=== PATIENT | female | born 1935 | race Asian ===

== ENCOUNTER 2019-08-21 12:35 | Emergency (ER) | payer MEDICARE, MEDICAID ==
[~2019-08-21] VITALS: Ht 157.5 cm; Wt 54.4 kg
--- NOTE | 2019-08-21 12:35 | NUR ---
ED Nurse Note: PT brought in by ambulance from [facility]. per EMS report, pt was seen stubling and bystander caught her and called 911. no actual fall or injury per report.
[2019-08-21 12:38] VITALS: BP 130/70
--- NOTE | 2019-08-21 12:59 | NUR ---
ED Nurse Note: ED MD @ bedside
--- NOTE | 2019-08-21 13:20 | NUR ---
ED Nurse Note: pt in CT
--- NOTE | 2019-08-21 13:35 | NUR ---
ED Nurse Note: pt back from radiology
--- NOTE | 2019-08-21 13:40 | Diagnostic Imaging Report ---
EXAM: XR Chest, 1 View CLINICAL HISTORY: DIZZY TECHNIQUE: Frontal view of the chest. COMPARISON: No relevant prior studies available. FINDINGS: Lungs: Hypoventilatory lungs. Bibasilar atelectasis. Mild central vascular congestion. 3.4 mm nodule in the left midlung. Pleural space: Unremarkable. No pneumothorax. Heart: Mild cardiomegaly. Mediastinum: Unremarkable. Bones/joints: Unremarkable. Vasculature: Aortic knob calcification. IMPRESSION: 1. Hypoventilatory lungs. Bibasilar atelectasis. Mild central vascular congestion. 2. 3.4 mm nodule in the left midlung.
--- NOTE | 2019-08-21 13:42 | NUR ---
ED Nurse Note: Pt aware of need for urine specimen, says she will call when she needs to go to the bathroom
--- NOTE | 2019-08-21 13:45 | NUR ---
ED Nurse Note: EKG shows acute MO. ED MD aware. Pt to be transferred to [facility]. Charge nurse aware and corresponding with [facility].
--- NOTE | 2019-08-21 13:50 | Emergency Room Report ---
History of Present Illness General Chief Complaint: Generalized Weakness Source: Patient, EMS Present Illness HPI Patient is an 84-year-old female who presents after increased weakness and dizziness starting this morning. Had prior history of high blood pressure. Patient was noted to have near syncopal episode and was brought to the hospital after bystanders called 911. Patient is Yakut speaking. No known prior cardiac history. Reports having some weakness to her right upper extremity. Denies any vomiting. Denies any chest discomfort. Allergies: Coded Allergies: No Known Allergies (Unverified , 08/21/19) COVID-19 Screening Contact w/high risk pt: No Recent Travel to affected area: No Experienced COVID-19 symptoms?: No COVID-19 Testing performed GAME ARTIST: No Patient History Past Medical History: see triage record Reviewed Nursing Documentation: PMH: Agreed; PSxH: Agreed Nursing Documentation-PMH Past Medical History: No Stated History Review of Systems All Other Systems: negative except mentioned in HPI Physical Exam Vital Signs Date Time Temp Pulse Resp B/P (MAP) Pulse Ox O2 Delivery O2 Flow Rate FiO2 08/21/19 12:29 98.2 96 18 135/67 (89) 95 Room Air Sp02 EP Interpretation: reviewed, normal General Appearance: normal inspection, well appearing, no apparent distress, alert, GCS 15 Head: atraumatic ENT: normal ENT inspection, hearing grossly normal, normal voice Neck: normal inspection, full range of motion, supple, no bony tend Respiratory: normal inspection, lungs clear, normal breath sounds, no respiratory distress, no retraction, no wheezing Cardiovascular #1: regular rate, rhythm, no edema Gastrointestinal: normal inspection, normal bowel sounds, non tender, soft, no guarding, no hernia Genitourinary: no CVA tenderness Musculoskeletal: normal inspection, back normal, normal range of motion Neurologic: alert, motor strength/tone normal, kindergarten tutor III-XII nml as tested, responsive, speech normal, normal inspection Psychiatric: normal inspection, judgement/insight normal, mood/affect normal Medical Decision Making Diagnostic Impression: Primary Impression: STEMI (ST elevation myocardial infarction) Additional Impression: Right sided weakness ER Course Patient presented for increased dizziness. Differential diagnosis include was not limited to CVA, myocardial infarction, electrolyte abnormality, coronavirus infection among others. Because of complexity of patient's case laboratory tests and imaging studies were ordered. Patient was noted to have acute onset of dizziness with some associated subjective weakness to the right upper extremity. EKG interpreted by me showed normal sinus rhythm with rate of [address] elevation as well as some inferior ST depression phasic T waves are noted in the lateral leads. Patient was given aspirin. CT imaging of the head was ordered. Chest x-ray showed Aortic calcification without any definite infiltrate mild cardiomegaly hypoventilatory lungs bibasilar atelectasis 3.4 mm nodule in the left midlung. Patient was discussed with accepting physician at [facility] for transfer for higher level of care due to possible STEMI. Labs Test 08/21/19 13:10 White Blood Count 8.3 K/UL (4.8-10.8) Red Blood Count 4.53 M/UL (4.20-5.40) Hemoglobin 13.6 G/DL (12.0-16.0) Hematocrit 42.6 % (37.0-47.0) Mean Corpuscular Volume 94 FL (80-99) Mean Corpuscular Hemoglobin 30.0 PG (27.0-31.0) Mean Corpuscular Hemoglobin Concent 31.9 G/DL (32.0-36.0) Red Cell Distribution Width 12.5 % (11.6-14.8) Platelet Count 332 K/UL (150-450) Mean Platelet Volume 6.4 FL (6.5-10.1) Neutrophils (%) (Auto) 65.5 % (45.0-75.0) Lymphocytes (%) (Auto) 25.2 % (20.0-45.0) Monocytes (%) (Auto) 5.5 % (1.0-10.0) Eosinophils (%) (Auto) 2.2 % (0.0-3.0) Basophils (%) (Auto) 1.7 % (0.0-2.0) Sodium Level 136 MMOL/L (136-145) Potassium Level 4.5 MMOL/L (3.5-5.1) Chloride Level 100 MMOL/L (98-107) Carbon Dioxide Level 24 MMOL/L (21-32) Anion Gap 12 mmol/L (5-15) Blood Urea Nitrogen 23 mg/dL (7-18) Creatinine 1.0 MG/DL (0.55-1.30) Estimat Glomerular Filtration Rate 52.7 mL/min (>60) Glucose Level 207 MG/DL (74-106) Calcium Level 9.7 MG/DL (8.5-10.1) EKG Diagnostic Results Rate: normal Rhythm: NSR ST Segments: other - ST changes in the septal leads. Last Vital Signs Date Time Temp Pulse Resp B/P (MAP) Pulse Ox O2 Delivery O2 Flow Rate FiO2 08/21/19 12:38 98.2 92 18 130/70 96 Room Air Status: improved Disposition: SHORT-TERM HOSP Condition: Stable Referrals: NOT CHOSEN IPA/,REFERRING (PCP) Odin Mathew MD Aug 21, 2019 13:50
[2019-08-21 13:59] LABS: BASOPHILS % (AUTO) 1.7 % (0.0-2.0); EOSINOPHILS % (AUTO) 2.2 % (0.0-3.0); HEMATOCRIT 42.6 % (37.0-47.0); HEMOGLOBIN 13.6 G/DL (12.0-16.0); LYMPHOCYTES % (AUTO) 25.2 % (20.0-45.0); MEAN CORPUSCULAR VOLUME 94 FL (80-99); MONOCYTES % (AUTO) 5.5 % (1.0-10.0); NEUTROPHILS % (AUTO) 65.5 % (45.0-75.0); PLATELET COUNT 332 K/UL (150-450); RED BLOOD COUNT 4.53 M/UL (4.20-5.40); RED CELL DISTRIBUTION WIDTH 12.5 % (11.6-14.8); WHITE BLOOD COUNT 8.3 K/UL (4.8-10.8)
[2019-08-21 14:01] LABS: ANION GAP 12 mmol/L (5-15); BLOOD UREA NITROGEN 23 mg/dL (7-18); CALCIUM 9.7 MG/DL (8.5-10.1); CARBON DIOXIDE 24 MMOL/L (21-32); CHLORIDE 100 MMOL/L (98-107); POTASSIUM 4.5 MMOL/L (3.5-5.1); SODIUM 136 MMOL/L (136-145)
[2019-08-21 14:02] LABS: INR 0.9 (0.9-1.1)
[2019-08-21 14:14] LABS: ALANINE AMINOTRANSFERASE 39 U/L (12-78); ALBUMIN/GLOBULIN RATIO 1.2 (1.0-2.7); ALKALINE PHOSPHATASE 59 U/L (46-116); ASPARTATE AMINO TRANSFERASE 23 U/L (15-37); BILIRUBIN,TOTAL 0.4 MG/DL (0.2-1.0); CREATINE KINASE 65 U/L (26-308)
--- NOTE | 2019-08-21 14:14 | Diagnostic Imaging Report ---
EXAM: CT Head Without Intravenous Contrast CLINICAL HISTORY: AMS TECHNIQUE: Axial computed tomography images of the head/brain without intravenous contrast. CTDI is 53.4 mGy and DLP is 1098.9 mGy-cm. One or more of the following dose reduction techniques were used: automated exposure control, adjustment of the mA and/or kV according to patient size, use of iterative reconstruction technique. COMPARISON: No relevant prior studies available. FINDINGS: No intracranial hemorrhage, abnormal intra- or extra-axial collections or parenchymal lesions are seen. There are involutional changes with prominence of the sulci, basal cisterns and ventricles. Scattered white matter hypoattenuations are present, likely from small vessel disease. The soni-white differentiation is preserved. Old bilateral basal ganglia infarcts. Old high left frontoparietal infarct. No evidence of mass effect, midline shift, or edema. The osseous structures are unremarkable. The visualized portions of the paranasal sinuses are clear. Mastoid air cells are clear. IMPRESSION: 1. No acute intracranial process. 2. Involutional changes with small vessel disease. 3. Old infarcts.
[2019-08-21 14:20] VITALS: BP 133/74
--- NOTE | 2019-08-21 14:20 | NUR ---
ED Nurse Note: Report given to JARETT Baca @ [facility]. [facility] arrived to transport patient. Report given to DARRELL. Pt in stable condition. Respirations even and unlabored on room air. Vitals stable as documented. Pt discharging with Left AC IV. Pt discharged safely via gurney with ambulance personnel en route to [facility] ER.
== END 2019-08-21 14:20 | disposition short-term general hospital (02) ==
LOC: EDBD 12:35 → EMR 13:40
DX: I21.3 ST elevation (STEMI) myocardial infarction of unspecified site (principal); R53.1 Weakness; R91.1 Solitary pulmonary nodule; I51.7 Cardiomegaly
CPT/HCPCS: 36415; 70450; 71045; 80053; 82550; 82553; 83605; 84484; 85025; 85610; 85730; 87040; 93005; 99285; J7040